=== PATIENT | female | born 1990 | race American Indian/Alaskan Native ===

== ENCOUNTER 2019-04-17 10:40 | Emergency (ER) | payer SELFPAY ==
[2019-04-17] MEDS ORDERED: ALBUTEROL 2.5 MG/3 ML NEBU IH ONE (11:31)
[2019-04-17] MEDS ORDERED: dexAMETHasone 20 MG/5 ML VIAL IV ONE (11:31)
[2019-04-17] MEDS ORDERED: IPRATROPIUM 0.02% NEBU 2.5 ML IH ONE (11:31)
--- NOTE | 2019-04-17 11:31 | Event Note ---
ED Screening Note Date of service: 04/17/19 Time: 11:32 ED Screening Note: 28 y/o obese female comes in for 3 day history of wheezing. Denies any fever, chill, N/V or abdominal pain. History of Asthmas has used her inhaler last at 8 am. Chest left upper and lower lobe wheezing. This initial assessment/diagnostic orders/clinical plan/treatment(s) is/are subject to change based on patients health status, clinical progression and re- assessment by fellow clinical providers in the ED. Further treatment and workup at subsequent clinical providers discretion. Patient/guardian urged not to elope from the ED as their condition may be serious if not clinically assessed and managed. Initial orders include: Nebs and steroids.
--- NOTE | 2019-04-17 11:48 | Emergency Department Report ---
HPI - General Chief Complaint: Upper Respiratory Infection Time Seen by Provider: 04/17/19 11:30 - HPI HPI: Room 36 The patient is a 28-year-old female presenting with a chief complaint of asthma exacerbation. Patient states his symptoms began one week ago with cold symptoms which included sneezing, cough and subjective fever. The patient surgically this triggered her asthma 3 days ago. The patient states for the past 3 days she has had wheezing consistent with her asthma exacerbation. Location: [See above] Duration: [See above] Quality: [See above] Severity: [See above] Timing: [See above] Context: [See above] Modifying factors: [See above] Associated signs and symptoms: [see above] ED Past Medical Hx - Past Medical History Hx Asthma: Yes - Surgical History Past Surgical History?: No Additional Surgical History: Tonsillectomy - Family History Family history: no significant - Social History Smoking Status: Former Smoker (none 3 years) Substance Use Type: None (denies illicit drug use), Alcohol (occasional) - Medications Home Medications: Home Medications Medication Instructions Recorded Confirmed Last Taken Type Albuterol INH(or & Nicu Only) 2 puff IH QID PRN #8.5 gram 04/17/19 Unknown Rx [ProAir HFA Inhaler] Benzonatate [Tessalon Perles] 100 mg PO Q8HR #30 capsule 04/17/19 Unknown Rx Prednisone [predniSONE 10 mg 10 mg PO .TAPER #1 tab.ds.pk 04/17/19 Unknown Rx (6-Day Pack, 21 Tabs)] ED Review of Systems ROS: Stated complaint: ASTHMA FLARE UP Other details as noted in HPI Constitutional: fever (subjective) ENT: congestion Respiratory: cough, wheezing Physical Exam - Physical Exam Vital Signs: Vital Signs 04/17/19 04/17/19 11:26 11:39 Temperature 99.4 F Pulse Rate 112 H Pulse Rate [ 110 H Anterior Bilateral Throughout] Respiratory 20 Rate Respiratory 18 Rate [Anterior Bilateral Throughout] Blood Pressure 101/63 O2 Sat by Pulse 95 Oximetry Physical Exam: GENERAL: The patient is well-developed well-nourished female sitting on stretcher receiving nebulizer not appearing to be in acute distress. [] HEENT: Normocephalic. Atraumatic. Extraocular motions are intact. Patient has moist mucous membranes. NECK: Supple. Trachea midline CHEST/LUNGS: Occasional faint wheeze. There is no respiratory distress noted. HEART/CARDIOVASCULAR: Regular. There is no tachycardia. There is no gallop rub or murmur. SKIN: There is no rash. There is no edema. There is no diaphoresis. NEURO: The patient is awake, alert, and oriented. The patient is cooperative. The patient has normal speech MUSCULOSKELETAL: There is no evidence of acute injury. ED Course Vital Signs 04/17/19 04/17/19 11:26 11:39 Temperature 99.4 F Pulse Rate 112 H Pulse Rate [ 110 H Anterior Bilateral Throughout] Respiratory 20 Rate Respiratory 18 Rate [Anterior Bilateral Throughout] Blood Pressure 101/63 O2 Sat by Pulse 95 Oximetry - Reevaluation(s) Reevaluation #1: 04/17/19 12:25 Patient improved after [facility] ED Medical Decision Making - Differential Diagnosis acute asthma exacerbation Critical care attestation.: If time is entered above; I have spent that time in minutes in the direct care of this critically ill patient, excluding procedure time. ED Disposition Clinical Impression: Acute asthma exacerbation, Shortness of breath, Cough Disposition: - TO HOME OR SELFCARE Is pt being admited?: No Does the pt Need Aspirin: No Condition: Stable Instructions: Asthma (ED) Additional Instructions: Return to the emergency department should you develop worsening symptoms, inability to tolerate food or liquids, high fever or any other concerns Prescriptions: Prednisone [predniSONE 10 mg (6-Day Pack, 21 Tabs)] 10 mg PO .TAPER #1 tab.ds.pk Albuterol INH(or & Nicu Only) [ProAir HFA Inhaler] 2 puff IH QID PRN #8.5 gram PRN Reason: Shortness Of Breath Benzonatate [Tessalon Perles] 100 mg PO Q8HR #30 capsule Referrals: AVELINO SIMON MD [Staff Physician] - 3-5 Days (Dr. Simon is a primary physician. Please follow up with him to be established as a patient) Time of Disposition: 12:27
[2019-04-17 12:33] VITALS: BP 110/70
== END 2019-04-17 12:32 | disposition home or self-care (01) ==
LOC: ED 10:40
DX: J45.901 Unspecified asthma with (acute) exacerbation (principal); F10.10 Alcohol abuse, uncomplicated; Z90.89 Acquired absence of other organs; Z87.891 Personal history of nicotine dependence; Z79.899 Other long term (current) drug therapy
CPT/HCPCS: 94640; 96374; 99283; J1100; 94644